=== PATIENT | female | born 1980 | race Caucasian/White ===

== ENCOUNTER → 2018-01-16 | Outpatient (CLI) | payer SELFPAY ==
[~2018-01-16] MED LIST: ATEN25 PO; K-Dur 20 meq T20 MEQ PO; LEVSOD125 PO; LIVALO4 MG PO; MULVITMINE PO; PROP10 PO; RXPROM25 PO
== END | disposition home or self-care (01) ==
LOC: LAB 14:15
PROVIDERS: Nurse Practitioner Family
DX: Z01.411 Encounter for gynecological examination (general) (routine) with abnormal findings (principal)
CPT/HCPCS: G0145

== ENCOUNTER → 2019-02-01 | Outpatient (CLI) | payer OTHER ==
[2019-02-01 10:01] LABS: BASOPHILS ABSOLUTE AUTO 0.03 K/mm3 (0.00-0.23); BASOPHILS PERCENT AUTO 0 % (0-2); EOSINOPHILS ABSOLUTE AUTO 0.14 K/mm3 (0.00-0.68); EOSINOPHILS PERCENT AUTO 2 % (0-6); Hematocrit 43.5 % (33.0-51.0); Hemoglobin 15.2 g/dL (11.5-16.0); IMMATURE GRAN ABSOLUTE AUTO 0.04 K/mm3 (0.00-0.10); IMMATURE GRAN PERCENT AUTO 0 % (0-1); LYMPHOCYTES ABSOLUTE AUTO 1.59 K/mm3 (0.84-5.20); LYMPHOCYTES PERCENT AUTO 17 % (21-46); MONOCYTES ABSOLUTE AUTO 0.47 K/mm3 (0.16-1.47); MONOCYTES PERCENT AUTO 5 % (4-13); Mean Corpuscular HGB 31.9 pg (26.0-34.0); Mean Corpuscular HGB Conc 34.9 g/dL (31.5-36.5); Mean Corpuscular Volume 91 fL (80-100); Mean Platelet Volume 8.2 fL (9.1-12.4); NEUTROPHILS ABSOLUTE AUTO 7.02 K/mm3 (1.96-9.15); NEUTROPHILS PERCENT AUTO 76 % (41-73); Platelet Count 237 K/mm3 (150-400); RDW Coefficient Variation 11.6 % (11.7-14.2); RDW Standard Deviation 38.7 fL (35.1-46.3); Red Blood Cell Count 4.76 M/mm3 (3.80-5.20); White Blood Cell Count 9.29 K/mm3 (4.00-11.30)
[2019-02-01 10:12] LABS: Alanine Aminotransfer (ALT/SGP 60 U/L (12-78); Albumin, Blood 4.1 g/dL (3.4-5.0); Albumin/Globulin Ratio 0.9 (0.8-1.8); Alk Phos 93 U/L (40-126); Anion Gap 9 mmol/L (6-16); Aspartate Aminotrans (AST/SGOT 55 U/L (12-37); Bilirubin, Total 1.4 mg/dL (0.1-1.0); Blood Urea Nitrogen 7 mg/dL (8-24); Bun/Creatinine Ratio 9.7 (12.0-20.0); CO2, Blood 30 mmol/L (21-32); Chloride, Blood 97 mmol/L (98-108); Creatinine, Blood 0.72 mg/dL (0.40-1.00); Globulin, Blood 4.5 g/dL (2.2-4.0); Glomerular Filtration Rate >60 (60-); Glucose, Blood 104 mg/dL (70-99); Potassium, Blood 3.5 mmol/L (3.5-5.5); Sodium, Blood 136 mmol/L (136-145); Total Protein, Blood 8.6 g/dL (6.4-8.2)
[2019-02-01 13:58] LABS: Bilirubin, Direct 0.2 mg/dL (0.0-0.3)
== END ==
LOC: LAB SHORT 09:57 → LAB EV 09:57
PROVIDERS: Physician Assistant
DX: R10.11 Right upper quadrant pain (principal); E80.6 Other disorders of bilirubin metabolism
CPT/HCPCS: 80053; 82248; 83690; 85025

== ENCOUNTER → 2020-01-19 | Outpatient (CLI) | payer OTHER | END | disposition home or self-care (01) | LOC: OLS 15:34 → LAB SHORT 15:34 | PROVIDERS: Nurse Practitioner | DX: Z01.419 Encounter for gynecological examination (general) (routine) without abnormal findings (principal) | CPT/HCPCS: G0145 ==

== ENCOUNTER 2021-10-23 05:22 | Emergency (ER) | payer OTHER ==
[~2021-10-23] VITALS: Ht 170.2 cm; Wt 83.9 kg
[2021-10-23] MEDS ORDERED: SYNTHROID137 MCG PO (05:41)
[2021-10-23] MEDS ORDERED: PRED20 PO (06:45)
== END 2021-10-23 06:50 | disposition home or self-care (01) ==
LOC: ER 05:22
DX: L50.0 Allergic urticaria (principal); Z88.0 Allergy status to penicillin; Z88.1 Allergy status to other antibiotic agents; Z88.5 Allergy status to narcotic agent; Z88.6 Allergy status to analgesic agent; Z88.8 Allergy status to other drugs, medicaments and biological substances; I10 Essential (primary) hypertension; E03.9 Hypothyroidism, unspecified; E78.5 Hyperlipidemia, unspecified; Z79.899 Other long term (current) drug therapy
CPT/HCPCS: 99282; J7512

== ENCOUNTER 2021-11-29 15:12 | Inpatient (IN) | payer OTHER ==
[~2021-11-29] VITALS: Ht 170.2 cm; Wt 84.4 kg
[~2021-11-29 15:12] MED LIST changes: -ATEN50 PO; -B-1100 M1 PO; -FOLI1 PO; -OMEP20ER PO; -OXYC5 PO; -POTCHL20ER PO
[2021-11-29 19:33] LABS: Cholesterol 192 mg/dL (50-200); Triglycerides 775 mg/dL (30-140)
[2021-11-30 05:46] LABS: BASOPHILS ABSOLUTE AUTO 0.04 K/mm3 (0.00-0.23); BASOPHILS PERCENT AUTO 0 % (0-2); EOSINOPHILS ABSOLUTE AUTO 0.02 K/mm3 (0.00-0.68); EOSINOPHILS PERCENT AUTO 0 % (0-6); Hematocrit 38.4 % (33.0-51.0); Hemoglobin 13.2 g/dL (11.5-16.0); IMMATURE GRAN ABSOLUTE AUTO 0.09 K/mm3 (0.00-0.10); IMMATURE GRAN PERCENT AUTO 1 % (0-1); LYMPHOCYTES ABSOLUTE AUTO 0.74 K/mm3 (0.84-5.20); LYMPHOCYTES PERCENT AUTO 4 % (21-46); MONOCYTES ABSOLUTE AUTO 0.56 K/mm3 (0.16-1.47); MONOCYTES PERCENT AUTO 3 % (4-13); Mean Corpuscular HGB 31.2 pg (26.0-34.0); Mean Corpuscular HGB Conc 34.4 g/dL (31.5-36.5); Mean Corpuscular Volume 91 fL (80-100); Mean Platelet Volume 8.5 fL (9.1-12.4); NEUTROPHILS ABSOLUTE AUTO 16.28 K/mm3 (1.96-9.15); NEUTROPHILS PERCENT AUTO 92 % (41-73); Platelet Count 172 K/mm3 (150-400); RDW Coefficient Variation 12.1 % (11.7-14.2); RDW Standard Deviation 40.2 fL (35.1-46.3); Red Blood Cell Count 4.23 M/mm3 (3.80-5.20); White Blood Cell Count 17.73 K/mm3 (4.00-11.30)
[2021-11-30 06:00] LABS: Anion Gap 9 mmol/L (6-16); Blood Urea Nitrogen 7 mg/dL (8-24); Bun/Creatinine Ratio 12.9 (12.0-20.0); CO2, Blood 25 mmol/L (21-32); Chloride, Blood 108 mmol/L (98-108); Creatinine, Blood 0.54 mg/dL (0.40-1.00); Glomerular Filtration Rate >60 (60-); Glucose, Blood 138 mg/dL (70-99); Magnesium, Blood 1.2 mg/dL (1.6-2.4); Potassium, Blood 2.7 mmol/L (3.5-5.5); Sodium, Blood 142 mmol/L (136-145)
--- NOTE | 2021-11-30 13:47 | NUR ---
SHIFT NOTE PT A&Ox4; ANXIOUS BUT COOPERTAIVE WTIH MOST CARE. PT REFUSING TELE. HR PER SPO2 LOW 100'S, NOTIFIFED DR ZUNIGA, NEW ORDERS TO D/C TELE. PT REPORTS INCREASED PAIN BETWEEN PAIN MEDICATIONS, NOTIFIED DR ZUNIGA, ORDER FOR TORADOL, PT REPORTS ADDITIONAL RELEIFE. PT REPORTS NAUSEA AND EMESIS WHEN WITH INCREASED PAIN, EMESIS LIQUIDS GREEN; DENIES NAUSEA WITH LOWER PAIN LEVELS. SPO2 >90% ON RA; LS CLEAR. PT DIET FOR CLEAR LIQUID. ELEVATED BP NOTED, TRENDING DOWN THIS AFTERNOON. OTHER VSS. NO OTHER ACUTE CHANGES. REPORTS CALLED TO FLOOR RN. PT TO MEDICAL FLOOR.
--- NOTE | 2021-11-30 14:52 | NUR ---
PT REPORT RECIEVED RECIEVED PT REPORT VIA MILLER ANAYA RN @ APPROX. 1250. PT TRANSFERED TO UNIT APPROX 133O VIA WC. PT ABLE TO SELF TRANSFER TO BED. PT ORIENTATED TO ROOM AND CALL LIGHT W/IN REACH. FOCUSED ASSESSMENT COMPLETED ON ARRIVAL. BP ELEVATED, PT REFUSED ORDERED BP MEDICATION. PT MEDICATED FOR PAIN PER EMAR. MALE VISITOR PRESENT @ BEDSIDE.
--- NOTE | 2021-11-30 16:25 | NUR ---
Initial Interview with [facility] Community Svp Chief Marketing Officer 1. Who did you speak with? Spoke with patient 2. What is the patient's prior level of functions? Patient lives independently with her boyfriend and two children. Patient able to perform ADL's without assistance. Patient lives in a single story home with no stairs; with running water, heat, electricity, and sewage. 3. What is the patient's current living situation? Patient lives independently 4. Is the patient and/or family able to provide transportation to and from doctor's appointments and pickle maker prescriptions? Yes, patient still drives 5. Does patient still drive? Yes 6. POA/PCP/NOK: NOK: Mother Juliana/PCP: Dr. Aundrea Willoughby 7. Discharge goals: Home -No DME needed -Medication Management: self -[facility]erred [facility] -Housekeeping need: patient able to perform -Cooking: patient able to perform 8. List barriers to discharge: None known at this time 9. Discharge Plan: Home/TBD 10. PCP Follow up appointment: Will be scheduled within seven calendar days of discharge 11. Other Notes: patient is not a
[2021-11-30] MEDS ORDERED: ATEN50 PO (17:07)
--- NOTE | 2021-11-30 17:31 | NUR ---
SHIFT SUMMARY PT A&O X4 & IN PLEASENT MOOD SINCE ARRIVAL TO UNIT, ABLE TO SELF TRANSFER SAFELY FROM WC @ ARRIVAL. MALE VISITOR @ BEDSIDE. PT VERBALIZED HOME MEDS ARE IN HER PURSE, PT ADVISED NOT TO TAKE HOME MEDS WHILE ADMITTED IN HOSPITAL. PT C/O PAIN, MEDICATED PER EMAR- RESTING COMFORTABLY SINCE IN BED. PT TOLERATING PO INTAKE, PT DENIES N/V. BP ELEVATED UPON ARRIVAL, PT STATES THIS IS BASELINE. CALL LIGHT W/IN REACH.
[2021-12-01 05:56] LABS: BASOPHILS ABSOLUTE AUTO 0.05 K/mm3 (0.00-0.23); BASOPHILS PERCENT AUTO 0 % (0-2); EOSINOPHILS ABSOLUTE AUTO 0.23 K/mm3 (0.00-0.68); EOSINOPHILS PERCENT AUTO 2 % (0-6); Hematocrit 35.3 % (33.0-51.0); Hemoglobin 11.8 g/dL (11.5-16.0); IMMATURE GRAN ABSOLUTE AUTO 0.16 K/mm3 (0.00-0.10); IMMATURE GRAN PERCENT AUTO 1 % (0-1); LYMPHOCYTES PERCENT AUTO 9 % (21-46); MONOCYTES ABSOLUTE AUTO 0.53 K/mm3 (0.16-1.47); MONOCYTES PERCENT AUTO 3 % (4-13); Mean Corpuscular HGB 31.4 pg (26.0-34.0); Mean Corpuscular HGB Conc 33.4 g/dL (31.5-36.5); Mean Corpuscular Volume 94 fL (80-100); Mean Platelet Volume 9.3 fL (9.1-12.4); NEUTROPHILS ABSOLUTE AUTO 13.24 K/mm3 (1.96-9.15); NEUTROPHILS PERCENT AUTO 85 % (41-73); Platelet Count 186 K/mm3 (150-400); RDW Coefficient Variation 12.5 % (11.7-14.2); RDW Standard Deviation 43.4 fL (35.1-46.3); Red Blood Cell Count 3.76 M/mm3 (3.80-5.20); White Blood Cell Count 15.61 K/mm3 (4.00-11.30)
[2021-12-01 06:18] LABS: Alanine Aminotransfer (ALT/SGP 19 U/L (12-78); Albumin, Blood 2.6 g/dL (3.4-5.0); Albumin/Globulin Ratio 0.7 (0.8-1.8); Alk Phos 79 U/L (50-136); Amylase, Blood 30 U/L (25-115); Anion Gap 5 mmol/L (6-16); Aspartate Aminotrans (AST/SGOT 29 U/L (12-37); Bilirubin, Total 1.7 mg/dL (0.1-1.0); Blood Urea Nitrogen 5 mg/dL (8-24); Bun/Creatinine Ratio 8.5 (12.0-20.0); CO2, Blood 31 mmol/L (21-32); Calcium, Blood 8.1 mg/dL (8.5-10.1); Chloride, Blood 99 mmol/L (98-108); Creatinine, Blood 0.59 mg/dL (0.40-1.00); Globulin, Blood 3.7 g/dL (2.2-4.0); Glomerular Filtration Rate >60 (60-); Glucose, Blood 99 mg/dL (70-99); Magnesium, Blood 2.4 mg/dL (1.6-2.4); Phosphorus, Blood 1.6 mg/dL (2.5-4.9); Potassium, Blood 2.7 mmol/L (3.5-5.5); Sodium, Blood 135 mmol/L (136-145); Total Protein, Blood 6.3 g/dL (6.4-8.2)
[2021-12-01 06:23] LABS: C-REACTIVE PROTEIN, EXT RANGE >19.000 mg/dL (0.000-0.300)
--- NOTE | 2021-12-01 06:41 | NUR ---
SHIFT SUMMARY PT IS AA0X4, VERY PLEASANT AND COOPERATIVE WITH CARE. PT IS INDEPENDENT .VSS REVIEWED. PT WAS MEDICATED FOR PAIN NEEDED.PT IS RESTING COMFORTABLY AT THIS TIME. BED IN LOWER POSITION AND CALL LIGHT IN EASY REACH.WILL CONTINUE TO MONITOR.
--- NOTE | 2021-12-01 17:57 | NUR ---
SHIFT SUMMARY PT A&O X4 AND IN PLEASENT MOOD T/O SHIFT. APPEARS ANXIOUS @ TIMES. MALE VISITOR @ BEDSIDE DURING VISITING HOURS. TOLERATING CL DIET, DENIES N/V. PAIN MEDS/INTERVENTIONS FOR PAIN T/O SHIFT. IV&PO K+ ADDMINISTERED FOR HYPOKALEMIA PER DR. PRYOR. VSS. CALL LIGHT W/IN REACH. INDEPENDENT IN ROOM.
--- NOTE | 2021-12-02 03:42 | NUR ---
PT NOTED WITH ELEVATED BP 157/111. PT STATES THAT HER BLOOD PRESSURE IS NOT HIGH. STATES THAT SHE CAN TELL WHEN HER BP IS HIGH BECAUSE HER "HANDS SWELL." PT REMINDED THAT THIS IS NOT THE FIRST TIME THAT SHE HAS BEEN NOTED TO HAVE SUCH A HIGH BLOOD PRESSURE READING, EVEN YESTERDAY AROUND 1525 PT HAD A SIMILIAR BP WELL PERIODICALLY IN THE PAST FEW DAYS. PT EDUCATED ABOUT THE POSSIBILTY OF BEING ASYMPTOMATIC AND EDUCATED ABOUT THE RISKS OF ALLOWING ELEVATED BP'S TO GO UNADDRESSED. ALSO, PT EDUCATED THAT THE BP ELEVATION CAN BE RELATED TO PAIN (PT WAS JUST MEDICATED WITH PRN IBUPROFEN 800MG FOR C/O BACK PAIN), THE IV FLUIDS (HAS LR AT 100ML/HR), ANXIETY, ALCOHOL WITHDRAWAL. PT BECAME FRUSTRATED WHEN ASKED IF WE COULD RECHECK HER BP IN 30 MINUTES-1 HOUR. PT REFUSED BP RECHECK STATING THAT SHE "IS FINE."
[2021-12-02 06:25] LABS: BASOPHILS ABSOLUTE AUTO 0.03 K/mm3 (0.00-0.23); BASOPHILS PERCENT AUTO 0 % (0-2); EOSINOPHILS ABSOLUTE AUTO 0.15 K/mm3 (0.00-0.68); EOSINOPHILS PERCENT AUTO 1 % (0-6); Hematocrit 33.5 % (33.0-51.0); Hemoglobin 10.9 g/dL (11.5-16.0); IMMATURE GRAN ABSOLUTE AUTO 0.11 K/mm3 (0.00-0.10); IMMATURE GRAN PERCENT AUTO 1 % (0-1); LYMPHOCYTES ABSOLUTE AUTO 1.13 K/mm3 (0.84-5.20); LYMPHOCYTES PERCENT AUTO 10 % (21-46); MONOCYTES ABSOLUTE AUTO 0.59 K/mm3 (0.16-1.47); MONOCYTES PERCENT AUTO 5 % (4-13); Mean Corpuscular HGB 31.1 pg (26.0-34.0); Mean Corpuscular HGB Conc 32.5 g/dL (31.5-36.5); Mean Corpuscular Volume 95 fL (80-100); Mean Platelet Volume 8.9 fL (9.1-12.4); NEUTROPHILS ABSOLUTE AUTO 9.38 K/mm3 (1.96-9.15); NEUTROPHILS PERCENT AUTO 82 % (41-73); Platelet Count 206 K/mm3 (150-400); RDW Coefficient Variation 12.5 % (11.7-14.2); RDW Standard Deviation 43.7 fL (35.1-46.3); Red Blood Cell Count 3.51 M/mm3 (3.80-5.20); White Blood Cell Count 11.39 K/mm3 (4.00-11.30)
[2021-12-02 06:57] LABS: Alanine Aminotransfer (ALT/SGP 22 U/L (12-78); Albumin, Blood 2.1 g/dL (3.4-5.0); Albumin/Globulin Ratio 0.5 (0.8-1.8); Alk Phos 82 U/L (50-136); Anion Gap 9 mmol/L (6-16); Aspartate Aminotrans (AST/SGOT 25 U/L (12-37); Bilirubin, Total 1.2 mg/dL (0.1-1.0); Blood Urea Nitrogen 6 mg/dL (8-24); Bun/Creatinine Ratio 11.3 (12.0-20.0); CO2, Blood 29 mmol/L (21-32); Calcium, Blood 8.5 mg/dL (8.5-10.1); Chloride, Blood 101 mmol/L (98-108); Creatinine, Blood 0.53 mg/dL (0.40-1.00); Globulin, Blood 4.3 g/dL (2.2-4.0); Glomerular Filtration Rate >60 (60-); Glucose, Blood 91 mg/dL (70-99); Magnesium, Blood 2.1 mg/dL (1.6-2.4); Phosphorus, Blood 2.6 mg/dL (2.5-4.9); Potassium, Blood 2.7 mmol/L (3.5-5.5); Sodium, Blood 139 mmol/L (136-145); Total Protein, Blood 6.4 g/dL (6.4-8.2)
--- NOTE | 2021-12-02 07:25 | NUR ---
DENISE SUMMARY ASSUMED CARE AT 1900. PT MEDICATED OF RC/O ABDOMINAL AND BACK PAIN PRN, WITH MODERATE/GOOD EFFECTIVENESS. PT WITH EPISODE OF ELEVATED BP, REFUSED RECHECK. RUE POWERGLIDE WITH IV FLUIDS INFUSING ORDERED, DRESSING INTACT. PT TOOK A SHOWER LAST NIGHT AT ABOUT 11PM. PT STATES LAST BM WAS ON 11/29/2021. BED IS IN LOW POSITION WITH THE CALL LIGHT WITHIN REACH.
--- NOTE | 2021-12-02 09:14 | NUR ---
KCL LEVEL 2.7, NOTIFIED DR. DICKERSON. ORDER RECEIVED FOR KCL 40 MEQ PO NOW AND KCL 40 MEQ IV NOW. ORDER PROCESSED. PT ALSO REQUESTED TO SPEAK TO LADLE CLEANER TODAY. NOTIFIED BRET AGARWAL OF REQUEST, LEFT MESSAGE.
[2021-12-02] MEDS ORDERED: OXYC5 PO (13:46)
[2021-12-02] MEDS ORDERED: OMEP20ER PO (13:46)
[2021-12-02] MEDS ORDERED: FOLI1 PO (13:46)
[2021-12-02] MEDS ORDERED: POTCHL20ER PO (13:47)
[2021-12-02] MEDS ORDERED: B-1100 M1 PO (13:47)
--- NOTE | 2021-12-02 14:33 | NUR ---
DISCHARGE SUMMARY: PT A/O X 4 IND AT TIME OF DISCHARGE. POTASSIUM LEVEL 3.4. EDUCATED PT ON DISCHARGE INSTRUCTIONS AND MEDICATIONS. IV REMOVED BY ADMINISTRATIVE SUPPORT SPECIALISTRAMBO Castillo. PT PACKED UP BELONGINGS. PT AMBULATED TO POV ESCORTED BY GLORIA SIBLEY.
--- NOTE | 2021-12-02 15:55 | NUR ---
Per Dr. Arzate discharge appropriate on: 12/02/21. Patient does not oppose discharge. Patient discharged to residence. Family provided transportation to residence. DME: none needed; patient able to perform ADL's independently without assistance. [facility] Transition of Care will contact patient to schedule hospital follow up with PCP Dr. Aundrea Willoughby. Patient has a good support system. No barriers to discharge.
== END 2021-12-02 13:57 | disposition home or self-care (01) | DRG 439 ==
LOC: ER 15:12 → ERHOLD 15:13 → MEDS 11-30 14:07
PROVIDERS: Hospitalist; ADMIT Internal Medicine
DX: K85.20 Alcohol induced acute pancreatitis without necrosis or infection (principal); R65.10 Systemic inflammatory response syndrome (SIRS) of non-infectious origin without acute organ dysfunction; I10 Essential (primary) hypertension; E03.9 Hypothyroidism, unspecified; E78.00 Pure hypercholesterolemia, unspecified; F41.9 Anxiety disorder, unspecified; E87.6 Hypokalemia; K76.0 Fatty (change of) liver, not elsewhere classified; E78.1 Pure hyperglyceridemia; E83.42 Hypomagnesemia; F10.20 Alcohol dependence, uncomplicated; K70.9 Alcoholic liver disease, unspecified; E78.5 Hyperlipidemia, unspecified; Z88.0 Allergy status to penicillin; Z88.1 Allergy status to other antibiotic agents; Z88.5 Allergy status to narcotic agent; Z88.8 Allergy status to other drugs, medicaments and biological substances; Z98.890 Other specified postprocedural states; Z79.899 Other long term (current) drug therapy
CPT/HCPCS: 36415; 76705; 80048; 80053; 82150; 82465; 83690; 83735; 84100; 84132; 84478; 85025; 85651; 86140; 96365; 96375; 96376; 99285-25; A9270; G0378; J0780; J1170; J1650; J1885; J2405; J2765; J3411; J3475; J3480; J7030; J7042; J7060; J7120

== ENCOUNTER → 2021-11-29 | Outpatient (CLI) | payer OTHER ==
[~2021-11-29] MED LIST changes: -ATEN25 PO; +ATEN50 PO; +B-1100 M1 PO; +CHLO25B PO; +FOLI1 PO; +OMEP20ER PO; +OXYC5 PO; +POTCHL20ER PO; +PRED20 PO; +SYNTHROID137 MCG PO
[2021-11-29 12:31] LABS: BASOPHILS ABSOLUTE AUTO 0.06 K/mm3 (0.00-0.23); BASOPHILS PERCENT AUTO 0 % (0-2); Hematocrit 43.4 % (33.0-51.0); Hemoglobin 15.1 g/dL (11.5-16.0); LYMPHOCYTES PERCENT AUTO 3 % (21-46); MONOCYTES PERCENT AUTO 3 % (4-13); Mean Corpuscular HGB 31.8 pg (26.0-34.0); Mean Corpuscular HGB Conc 34.8 g/dL (31.5-36.5); Mean Corpuscular Volume 91 fL (80-100); Mean Platelet Volume 8.2 fL (9.1-12.4); Platelet Count 220 K/mm3 (150-400); RDW Coefficient Variation 12.2 % (11.7-14.2); RDW Standard Deviation 40.3 fL (35.1-46.3); Red Blood Cell Count 4.75 M/mm3 (3.80-5.20); White Blood Cell Count 18.14 K/mm3 (4.00-11.30)
[2021-11-29 12:37] LABS: EOSINOPHILS PERCENT AUTO 0 % (0-6); NEUTROPHILS PERCENT AUTO 93 % (41-73)
[2021-11-29 12:42] LABS: Alanine Aminotransfer (ALT/SGP 38 U/L (12-78); Albumin, Blood 3.7 g/dL (3.4-5.0); Alk Phos 98 U/L (40-126); Anion Gap 15 mmol/L (6-16); Aspartate Aminotrans (AST/SGOT 55 U/L (12-37); Bilirubin, Total 1.2 mg/dL (0.1-1.0); Blood Urea Nitrogen 8 mg/dL (8-24); Bun/Creatinine Ratio 11.1 (12.0-20.0); CO2, Blood 24 mmol/L (21-32); Calcium, Blood 9.1 mg/dL (8.5-10.1); Chloride, Blood 103 mmol/L (98-108); Creatinine, Blood 0.72 mg/dL (0.40-1.00); Globulin, Blood 3.8 g/dL (2.2-4.0); Glomerular Filtration Rate >60 (60-); Glucose, Blood 153 mg/dL (70-99); Potassium, Blood 3.1 mmol/L (3.5-5.5); Sodium, Blood 142 mmol/L (136-145); Total Protein, Blood 7.5 g/dL (6.4-8.2)
[2021-11-29 12:43] LABS: EOSINOPHILS ABSOLUTE AUTO 0.03 K/mm3 (0.00-0.68); IMMATURE GRAN ABSOLUTE AUTO 0.07 K/mm3 (0.00-0.10); IMMATURE GRAN PERCENT AUTO 0 % (0-1); LYMPHOCYTES ABSOLUTE AUTO 0.53 K/mm3 (0.84-5.20); MONOCYTES ABSOLUTE AUTO 0.52 K/mm3 (0.16-1.47); NEUTROPHILS ABSOLUTE AUTO 16.62 K/mm3 (1.96-9.15)
== END | disposition home or self-care (01) ==
LOC: LAB SHORT 12:25
PROVIDERS: Physician Assistant Medical
DX: R10.13 Epigastric pain (principal); R11.2 Nausea with vomiting, unspecified
CPT/HCPCS: 80053; 83690; 85025

== ENCOUNTER → 2022-02-03 | Outpatient (CLI) | payer OTHER ==
[~2022-02-03] MED LIST changes: +ATEN50 PO; +B-1100 M1 PO; +FOLI1 PO; +OMEP20ER PO; +OXYC5 PO; +POTCHL20ER PO
[2022-02-03 09:49] LABS: BASOPHILS ABSOLUTE AUTO 0.03 K/mm3 (0.00-0.23); BASOPHILS PERCENT AUTO 0 % (0-2); EOSINOPHILS ABSOLUTE AUTO 0.06 K/mm3 (0.00-0.68); EOSINOPHILS PERCENT AUTO 1 % (0-6); Hematocrit 42.1 % (33.0-51.0); Hemoglobin 14.2 g/dL (11.5-16.0); IMMATURE GRAN ABSOLUTE AUTO 0.05 K/mm3 (0.00-0.10); IMMATURE GRAN PERCENT AUTO 0 % (0-1); LYMPHOCYTES ABSOLUTE AUTO 0.87 K/mm3 (0.84-5.20); LYMPHOCYTES PERCENT AUTO 7 % (21-46); MONOCYTES ABSOLUTE AUTO 0.45 K/mm3 (0.16-1.47); MONOCYTES PERCENT AUTO 4 % (4-13); Mean Corpuscular HGB Conc 33.7 g/dL (31.5-36.5); Mean Corpuscular Volume 92 fL (80-100); Mean Platelet Volume 8.6 fL (9.1-12.4); NEUTROPHILS ABSOLUTE AUTO 10.85 K/mm3 (1.96-9.15); NEUTROPHILS PERCENT AUTO 88 % (41-73); Platelet Count 266 K/mm3 (150-400); RDW Coefficient Variation 12.1 % (11.7-14.2); RDW Standard Deviation 40.6 fL (35.1-46.3); Red Blood Cell Count 4.58 M/mm3 (3.80-5.20); White Blood Cell Count 12.31 K/mm3 (4.00-11.30)
[2022-02-03 10:02] LABS: Alanine Aminotransfer (ALT/SGP 37 U/L (12-78); Albumin, Blood 3.7 g/dL (3.4-5.0); Albumin/Globulin Ratio 0.9 (0.8-1.8); Alk Phos 111 U/L (40-126); Anion Gap 10 mmol/L (6-16); Aspartate Aminotrans (AST/SGOT 47 U/L (12-37); Bilirubin, Total 1.6 mg/dL (0.1-1.0); Blood Urea Nitrogen 10 mg/dL (8-24); Bun/Creatinine Ratio 13.7 (12.0-20.0); CO2, Blood 27 mmol/L (21-32); Calcium, Blood 8.8 mg/dL (8.5-10.1); Chloride, Blood 100 mmol/L (98-108); Creatinine, Blood 0.73 mg/dL (0.40-1.00); Glomerular Filtration Rate >60 (60-); Glucose, Blood 129 mg/dL (70-99); Potassium, Blood 3.9 mmol/L (3.5-5.5); Sodium, Blood 137 mmol/L (136-145); Total Protein, Blood 7.7 g/dL (6.4-8.2)
== END ==
LOC: LAB SHORT 09:36
PROVIDERS: Physician Assistant Surgical
DX: R10.12 Left upper quadrant pain (principal)
CPT/HCPCS: 80053; 83690; 85025

== ENCOUNTER 2023-01-16 08:25 | Inpatient (IN) | payer OTHER ==
[~2023-01-16] VITALS: Ht 170.2 cm; Wt 72.6 kg
[~2023-01-16 08:25] MED LIST changes: +ONDA4ODT MM; +OXAYDO5 M1 PO
[2023-01-16 08:57] LABS: BASOPHILS ABSOLUTE AUTO 0.02 K/mm3 (0.00-0.23); BASOPHILS PERCENT AUTO 0 % (0-2); EOSINOPHILS ABSOLUTE AUTO 0.13 K/mm3 (0.00-0.68); EOSINOPHILS PERCENT AUTO 2 % (0-6); Hemoglobin 14.6 g/dL (11.5-16.0); IMMATURE GRAN ABSOLUTE AUTO 0.02 K/mm3 (0.00-0.10); IMMATURE GRAN PERCENT AUTO 0 % (0-1); LYMPHOCYTES ABSOLUTE AUTO 1.08 K/mm3 (0.84-5.20); LYMPHOCYTES PERCENT AUTO 14 % (21-46); MONOCYTES ABSOLUTE AUTO 0.69 K/mm3 (0.16-1.47); MONOCYTES PERCENT AUTO 9 % (4-13); Mean Corpuscular HGB 31.7 pg (26.0-34.0); Mean Corpuscular Volume 94 fL (80-100); Mean Platelet Volume 9.2 fL (9.1-12.4); NEUTROPHILS ABSOLUTE AUTO 5.75 K/mm3 (1.96-9.15); NEUTROPHILS PERCENT AUTO 75 % (41-73); Platelet Count 168 K/mm3 (150-400); RDW Coefficient Variation 12.6 % (11.7-14.2); RDW Standard Deviation 43.7 fL (35.1-46.3); White Blood Cell Count 7.69 K/mm3 (4.00-11.30)
[2023-01-16 09:25] LABS: Albumin, Blood 4.5 g/dL (3.4-5.0); Bilirubin, Total 2.2 mg/dL (0.1-1.0); Bun/Creatinine Ratio 27.1 (12.0-20.0); Calcium, Blood 10.1 mg/dL (8.5-10.1); Creatinine, Blood 0.52 mg/dL (0.40-1.00); Globulin, Blood 4.3 g/dL (2.2-4.0); Potassium, Blood 3.8 mmol/L (3.5-5.5); Total Protein, Blood 8.8 g/dL (6.4-8.2)
[2023-01-16 10:22] LABS: Source, Urine Clean Catch
[2023-01-16 10:26] LABS: Appearance, Urine Clear (Clear); Bilirubin, Urine Neg (Neg); Blood, Urine Neg (Neg); Color, Urine Yellow (P-Yellow); Glucose Qualitative, Urine Neg (Neg); Ketones, Urine 3+ (Neg); Leukocyte Esterase, Urine Neg (Neg); Nitrite, Urine Neg (Neg); Protein, Urine 1+ (Neg); Urobilinogen, Urine 1+ (Normal); pH, Urine 6.5 (5.0-8.0)
--- NOTE | 2023-01-16 14:17 | NUR ---
ADMISSION: PT ARRIVED VIA , ESCORTED BY DIRECTOR OF CLINICAL EDUCATION. PT ABLE TO TRANSFER OUT OF IN THE BED UNASSISTED. PT ABLE TO AMBULATE IN THE ROOM UNASSISTED AND WITH A STEADY GAIT. PT HAS MODERATE RUQ PAIN, THROBBING, ACHING AND RADIATING TO LUQ. DR. JOHNSON PLACED AN ORDER FOR REWIND OPERATOR PUMP FOR MORPHINE LOADING DOSE 3MG, REWIND OPERATOR DOSE 0.2MG, LOCKOUT 10MIN WITH 4 HOUR LIMIT SET 20MG. PT HAD MODERATE NAUSEA AND VOMITING DURING THE MOPHINE 3MG LOADING DOSE, PT GIVEN ZOFRAN IV 4MG. ON ASSESSMENT PT PAIN IMPROVED AND NAUSEA AND VOMITING STOPPED. PT ABLE TO REST IN BED WITH NO S/S OF DISTRESS. PT GIVEN CLEAR FLUIDS GATORADE, WATER AND APPLE JUICE. PT AT BEDSIDE FOR SUPPORT AND CARE. PT ABLE TO PROVIDE MOST OF ADL'S INDEPEDANTLY PT IN BED WITH CALL LIGHT AND REWIND OPERATOR PUMP CONTROLS WITHIN REACH.
--- NOTE | 2023-01-17 04:29 | NUR ---
ATHLETIC EQUIPMENT CUSTODIAN SUMMARY PT A/OX4. NO ACTUE EVENTS. PT ON CLEAR LIQUIDS AND TOLERATING W/SOME DISCOMFORT. BEATER ROOM SUPERVISOR; 0.20MG MORPHINE Q10 MINUTES FOR MAX 20MG Q4 HOURS. PT EPISODE OF N&V THIS. PT NOT WANTING TO RELY ON BEATER ROOM SUPERVISOR IN HOPES TO GO HOME SOONER. PT EDUCATION ON CURRENT ILLNESS AND ENCOURAGED PAIN CONTROL T/HELP W/NAUSEA. MEDS P/EMAR. OF THIS NOTE TOTAL BEATER ROOM SUPERVISOR DOSE AT 0.6MG MORPHINE. PT ABLE TO MAKE NEEDS KNOWN. CALL LIGHT ACCESSIBE. WILL CONT T/MONITOR.
[2023-01-17 04:58] LABS: BASOPHILS ABSOLUTE AUTO 0.02 K/mm3 (0.00-0.23); BASOPHILS PERCENT AUTO 0 % (0-2); EOSINOPHILS ABSOLUTE AUTO 0.18 K/mm3 (0.00-0.68); EOSINOPHILS PERCENT AUTO 3 % (0-6); Hematocrit 35.7 % (33.0-51.0); IMMATURE GRAN ABSOLUTE AUTO 0.03 K/mm3 (0.00-0.10); IMMATURE GRAN PERCENT AUTO 1 % (0-1); LYMPHOCYTES ABSOLUTE AUTO 0.76 K/mm3 (0.84-5.20); LYMPHOCYTES PERCENT AUTO 12 % (21-46); MONOCYTES ABSOLUTE AUTO 0.62 K/mm3 (0.16-1.47); MONOCYTES PERCENT AUTO 9 % (4-13); Mean Corpuscular HGB 31.9 pg (26.0-34.0); Mean Corpuscular HGB Conc 33.6 g/dL (31.5-36.5); Mean Corpuscular Volume 95 fL (80-100); Mean Platelet Volume 9.4 fL (9.1-12.4); NEUTROPHILS ABSOLUTE AUTO 4.96 K/mm3 (1.96-9.15); NEUTROPHILS PERCENT AUTO 76 % (41-73); Platelet Count 152 K/mm3 (150-400); RDW Coefficient Variation 12.3 % (11.7-14.2); RDW Standard Deviation 43.2 fL (35.1-46.3); Red Blood Cell Count 3.76 M/mm3 (3.80-5.20); White Blood Cell Count 6.57 K/mm3 (4.00-11.30)
[2023-01-17 05:31] LABS: Albumin, Blood 3.5 g/dL (3.4-5.0); Bilirubin, Total 1.6 mg/dL (0.1-1.0); Calcium, Blood 8.4 mg/dL (8.5-10.1); Creatinine, Blood 0.42 mg/dL (0.40-1.00); Globulin, Blood 3.4 g/dL (2.2-4.0); Magnesium, Blood 1.7 mg/dL (1.6-2.4); Potassium, Blood 3.9 mmol/L (3.5-5.5); Total Protein, Blood 6.9 g/dL (6.4-8.2)
--- NOTE | 2023-01-17 16:01 | NUR ---
PT IS A/OX4, PLEASANT AND COOPERATIVE, UP IND IN HER ROOM. THE PT CONTINUES TO HAVE SEVERE ABD PAIN AND N/V. PT ENCOURAGED TO LITTLE PO INTAKE AT THIS TIME DUE TO THE PAIN. PER PT SHE HAS HAD ONLY SIPS AT A TIME OF CLEAR ENSURE AND SOME ICE CHIPS. PT IS ON A MORPHINE PLUNKET NURSE AND HAS ALSO TAKEN ORAL PAIN MEDICATION. PT WAS MEDICATED FOR NAUSEA X2 SO FAR THIS SHIFT. CALL LIGHT IN REACH. WILL CONTINUE TO MONITOR AND ASSESS FOR CHANGES
[2023-01-18 05:25] LABS: BASOPHILS ABSOLUTE AUTO 0.01 K/mm3 (0.00-0.23); BASOPHILS PERCENT AUTO 0 % (0-2); EOSINOPHILS ABSOLUTE AUTO 0.12 K/mm3 (0.00-0.68); EOSINOPHILS PERCENT AUTO 2 % (0-6); IMMATURE GRAN ABSOLUTE AUTO 0.02 K/mm3 (0.00-0.10); IMMATURE GRAN PERCENT AUTO 0 % (0-1); LYMPHOCYTES ABSOLUTE AUTO 0.68 K/mm3 (0.84-5.20); LYMPHOCYTES PERCENT AUTO 10 % (21-46); MONOCYTES ABSOLUTE AUTO 0.55 K/mm3 (0.16-1.47); MONOCYTES PERCENT AUTO 8 % (4-13); Mean Corpuscular HGB 31.7 pg (26.0-34.0); Mean Corpuscular HGB Conc 34.2 g/dL (31.5-36.5); Mean Corpuscular Volume 93 fL (80-100); Mean Platelet Volume 9.1 fL (9.1-12.4); NEUTROPHILS ABSOLUTE AUTO 5.64 K/mm3 (1.96-9.15); NEUTROPHILS PERCENT AUTO 80 % (41-73); Platelet Count 153 K/mm3 (150-400); RDW Coefficient Variation 12.1 % (11.7-14.2); RDW Standard Deviation 41.3 fL (35.1-46.3); White Blood Cell Count 7.02 K/mm3 (4.00-11.30)
[2023-01-18 05:55] LABS: Albumin, Blood 3.6 g/dL (3.4-5.0); Albumin/Globulin Ratio 0.9 (0.8-1.8); Bilirubin, Total 1.2 mg/dL (0.1-1.0); Bun/Creatinine Ratio 13.7 (12.0-20.0); Calcium, Blood 8.8 mg/dL (8.5-10.1); Creatinine, Blood 0.36 mg/dL (0.40-1.00); Globulin, Blood 3.8 g/dL (2.2-4.0); Phosphorus, Blood 2.9 mg/dL (2.5-4.9); Potassium, Blood 3.8 mmol/L (3.5-5.5); Total Protein, Blood 7.4 g/dL (6.4-8.2)
--- NOTE | 2023-01-18 06:44 | NUR ---
EVAPORATOR OPERATOR MOLASSES SUMMARY: A&Ox4. PLEASANT AND COOPERATIVE WITH CARE. CALLS APPROPRIATELY AND IS ABLE TO COMMUNICATE NEEDS EFFECTIVELY. MEDICATED PRN OXY 10MG x2 T/O NIGHT AND EXTRUSION TECHNICIAN FOR ABDOMINAL PAIN R/T PANCREATITIS. CIWA SCORES CONTINUE TO BE <8. SHE ALSO DECLINES ATIVAN SHE HAS HAD NIGHTMARES FROM IT IN THE PAST. ELEVATED BP BUT DECLINED HYDRALAZINE. LABS THIS AM; NO CRITICAL RESULTS RECEIVED AT THIS TIME. DR JOHNSON TO BEDSIDE THIS AM; PT CAN START FULL LIQUIDS; ANTICIPATE DC EXTRUSION TECHNICIAN PUMP AND CHANGING TO PRN DILAUDID. HE WILL PUT IN ORDERS. REPORT TO ONCOMING RN.
[2023-01-18] MEDS ORDERED: ONDA4 PO (10:27)
--- NOTE | 2023-01-18 14:14 | NUR ---
LATE ENTRY/DC HOME 1245: WRITTEN & VERBAL DC INSTRUCTIONS GIVEN TO PT WITH PRESENT, BOTH VERBALIZED GOOD UNDERSTANDING. ALL QUESTIONS & CONCERNS ANSWERED. PIV DC'D WITH CATH TIP INTACT, NO REDNESS OR SWELLING NOTED. 1 NEW SCRIPT FAXED TO [facility]. 1 OTHER NEW HARD COPY SCRIPT FOR PAIN MEDICATION COPIED WITH COPY ON CHART & ORIGINAL SCRIPT GIVEN TO PT. PT AMBULATED SELF, ACCOMPANIED BY , TO PRIVATE VEHICLE WITH ALL PERSONAL BELONGINGS.
== END 2023-01-18 12:30 | disposition home or self-care (01) | DRG 439 ==
LOC: ER 08:25 → MEDS 08:26
PROVIDERS: Emergency Medicine; ADMIT Family Medicine
DX: K85.20 Alcohol induced acute pancreatitis without necrosis or infection (principal); E87.1 Hypo-osmolality and hyponatremia; R16.0 Hepatomegaly, not elsewhere classified; K76.0 Fatty (change of) liver, not elsewhere classified; F10.10 Alcohol abuse, uncomplicated; N20.0 Calculus of kidney; R74.8 Abnormal levels of other serum enzymes; I10 Essential (primary) hypertension; E78.00 Pure hypercholesterolemia, unspecified; E03.9 Hypothyroidism, unspecified; F17.210 Nicotine dependence, cigarettes, uncomplicated; F41.9 Anxiety disorder, unspecified; Z98.890 Other specified postprocedural states; Z71.41 Alcohol abuse counseling and surveillance of alcoholic; Z88.0 Allergy status to penicillin; Z88.8 Allergy status to other drugs, medicaments and biological substances; Z88.5 Allergy status to narcotic agent; Z87.19 Personal history of other diseases of the digestive system; Z88.1 Allergy status to other antibiotic agents; Z79.899 Other long term (current) drug therapy
CPT/HCPCS: 36415; 74176; 76705; 80053; 81025; 83690; 83735; 84100; 85025; 96361; 96365; 96366; 96374; 96375; 96376; 99285-25; A9270; G0378; G0480; J2270; J2405; J3475; J7030

== ENCOUNTER → 2023-02-05 | Outpatient (CLI) | payer OTHER ==
[~2023-02-05] MED LIST changes: +ONDA4 PO
[2023-02-06 10:19] LABS: Candida species (DNA Probe) Negative (NEGATIVE); G. vaginalis (DNA Probe) Positive (NEGATIVE); T. vaginalis (DNA Probe) Negative (NEGATIVE)
[2023-02-07 15:11] LABS: HPV 16 Negative (Negative); HPV 18 Negative (Negative); HPV OTHER HR TYPES Negative (Negative)
[2023-02-08 14:11] LABS: CHLAMYDIA BY NAA Negative (Negative); GONOCOCCUS BY NAA Negative (Negative); TRICH VAG BY NAA Negative (Negative)
== END | disposition home or self-care (01) ==
LOC: RAD SHORT 16:00
PROVIDERS: Family Medicine
DX: Z01.419 Encounter for gynecological examination (general) (routine) without abnormal findings (principal)
CPT/HCPCS: 87480; 87491; 87510; 87591; 87624; 87660; 87661; 88175

== ENCOUNTER 2023-06-04 17:09 | Inpatient (IN) | payer OTHER ==
[~2023-06-04] VITALS: Ht 170.2 cm; Wt 72.6 kg
[~2023-06-04 17:09] MED LIST changes: +ATEN25 PO; -ATEN50 PO
[2023-06-04 18:15] LABS: BASOPHILS ABSOLUTE AUTO 0.03 K/mm3 (0.00-0.23); BASOPHILS PERCENT AUTO 0 % (0-2); EOSINOPHILS ABSOLUTE AUTO 0.06 K/mm3 (0.00-0.68); EOSINOPHILS PERCENT AUTO 1 % (0-6); Hematocrit 44.1 % (33.0-51.0); Hemoglobin 14.6 g/dL (11.5-16.0); IMMATURE GRAN ABSOLUTE AUTO 0.02 K/mm3 (0.00-0.10); IMMATURE GRAN PERCENT AUTO 0 % (0-1); LYMPHOCYTES ABSOLUTE AUTO 0.99 K/mm3 (0.84-5.20); LYMPHOCYTES PERCENT AUTO 10 % (21-46); MONOCYTES ABSOLUTE AUTO 0.39 K/mm3 (0.16-1.47); MONOCYTES PERCENT AUTO 4 % (4-13); Mean Corpuscular HGB 30.7 pg (26.0-34.0); Mean Corpuscular HGB Conc 33.1 g/dL (31.5-36.5); Mean Corpuscular Volume 93 fL (80-100); Mean Platelet Volume 8.5 fL (9.1-12.4); NEUTROPHILS ABSOLUTE AUTO 7.99 K/mm3 (1.96-9.15); NEUTROPHILS PERCENT AUTO 84 % (41-73); Platelet Count 190 K/mm3 (150-400); RDW Coefficient Variation 13.2 % (11.7-14.2); RDW Standard Deviation 44.9 fL (35.1-46.3); Red Blood Cell Count 4.75 M/mm3 (3.80-5.20); White Blood Cell Count 9.48 K/mm3 (4.00-11.30)
[2023-06-04 18:34] LABS: Albumin, Blood 3.9 g/dL (3.4-5.0); Albumin/Globulin Ratio 1.1 (0.8-1.8); Bilirubin, Total 1.2 mg/dL (0.1-1.0); Bun/Creatinine Ratio 13.8 (12.0-20.0); Calcium, Blood 8.9 mg/dL (8.5-10.1); Creatinine, Blood 0.58 mg/dL (0.40-1.00); Globulin, Blood 3.7 g/dL (2.2-4.0); Potassium, Blood 4.3 mmol/L (3.5-5.5); Total Protein, Blood 7.6 g/dL (6.4-8.2)
[2023-06-04 20:59] LABS: Source, Urine Clean Catch
[2023-06-04 21:06] LABS: Appearance, Urine Clear (Clear); Bilirubin, Urine Neg (Neg); Blood, Urine Neg (Neg); Color, Urine Amber (P-Yellow); Glucose Qualitative, Urine Neg (Neg); Ketones, Urine 4+ (Neg); Leukocyte Esterase, Urine 1+ (Neg); Nitrite, Urine Neg (Neg); Protein, Urine 2+ (Neg); Urobilinogen, Urine 1+ (Normal)
[2023-06-04 21:10] LABS: Magnesium, Blood 1.8 mg/dL (1.6-2.4)
[2023-06-04 21:18] LABS: Bacteria Many /hpf; Red Blood Cells, Urine 0-2 /hpf (0-2); Squamous Epithelial Cells Mod /hpf (Few)
[2023-06-05 03:26] VITALS: BP 160/100
--- NOTE | 2023-06-05 04:56 | NUR ---
SHIFT SUMMARY. PT ARRIVED ON UNIT AT ABOUT ~0330. ADMITTED FOR PANCREATITIS. PT IS AOX4, PLEASANT, COOPERATIVE WITH CARE. ORDERED FENTANYL 25 MCG WAS NOT ADEQUATELY MANAGING PAIN. CALLED HOSPITALIST DR. ARTEAGA WHO REPLACED WITH DILAUDID WHICH HAS BEEN MANAGING PAIN EFFECTIVELY. PT INDEPENDENT WITHIN ROOM. NPO. BECOMES NAUSEOUS WITH PAIN BUT THIS SUBSIDES WHEN PAIN IS MANAGED. NO ACUTE SIGNS OF ALCOHOL WITHDRAWAL. LR RUNNING @ 125 MLS/HR. SKIN ASSESSMENT LARGELY UNREMARKABLE. CALLS APPROPRIATELY. BED LOCKED IN LOWEST POSITION. CALL LIGHT LEFT WITHIN REACH.
[2023-06-05 08:06] VITALS: BP 149/98
[2023-06-05 15:35] VITALS: BP 149/94
--- NOTE | 2023-06-05 18:48 | NUR ---
SHIFT SUMMARY ALERT, ORIENTED, AND INDEPENDENT. INTERMITTENT NAUSEA AND VOMITING. TOLERATING SIPS OF WATER AND APPLESAUCE. MEDICATED FOR PAIN AND NAUSEA PER EMAR. SALINE LOCKED AT THIS TIME. VOIDING WELL. THERAPEUTIC DISCUSSION WITH PATIENT AND S/O ABOUT ALCOHOL CESSATION. MRI IS ON HOLD PER DR PALMA. CIWAS STABLE BUT DIFFICULT TO DETERMINE HOW MUCH IS ETOH VS PANCREATITIS SX. REPORT GIVEN TO PNEUMATIC JACK OPERATOR RN.
[2023-06-05 19:52] VITALS: BP 154/97
--- NOTE | 2023-06-06 04:04 | NUR ---
SHIFT SUMMARY. SHIFT HAS BEEN UNREMARKABLE OUTSIDE OF PAIN MANAGEMENT. PT IS NOT TOLERATING DIET WELL AND HAS ONLY HAD VERY VERY MINIMAL PO INTAKE. PAIN HAS BEEN MOSTLY WELL MANAGED ON CURRENT MEDICATION REGIMEN. STILL TAKING DILAUDID Q3 HOURS AND PAIN STARTS TO SPIKE NOT LONG BEFORE EACH DOSE IS DUE. REFUSED 2100 PEPCID. SOME PT CONCERN FOR CONSTIPATION. EDUCATED ON IMPORTANCE OF PO FLUID INTAKE BUT UNDERSTAND BALANCE BETWEEN AVOIDING CONSTIPATION AND AVOIDING PO INTAKE INTOLERANCE AND CONSEQUENCE N/V. REMAINS INDEPENDENT WITHIN ROOM. AOX4, PLEASANT, COOPERATIVE WITH CARE. NO MANIFESTATIONS OF WITHDRAWAL. CIWA SCORE IS MILDLY ELEVATED DUE PRIMARILY TO PARAMETER FOR N/V BEING PRESENT, WHICH OBVIOUSLY IS. VERY MILD HEADACHE REPORTED EARLY THIS MORNING WHICH HAS SUBSIDED SINCE DILAUDID ADMINISTRATION. CALLS APPROPRIATELY. BED LOCKED IN LOWEST POSITION. CALL LIGHT LEFT WITHIN REACH.
[2023-06-06 05:49] VITALS: BP 148/100
[2023-06-06 05:54] LABS: BASOPHILS ABSOLUTE AUTO 0.02 K/mm3 (0.00-0.23); BASOPHILS PERCENT AUTO 0 % (0-2); EOSINOPHILS ABSOLUTE AUTO 0.34 K/mm3 (0.00-0.68); EOSINOPHILS PERCENT AUTO 3 % (0-6); Hematocrit 38.1 % (33.0-51.0); Hemoglobin 12.6 g/dL (11.5-16.0); IMMATURE GRAN ABSOLUTE AUTO 0.04 K/mm3 (0.00-0.10); IMMATURE GRAN PERCENT AUTO 0 % (0-1); LYMPHOCYTES ABSOLUTE AUTO 1.24 K/mm3 (0.84-5.20); LYMPHOCYTES PERCENT AUTO 12 % (21-46); MONOCYTES ABSOLUTE AUTO 0.73 K/mm3 (0.16-1.47); MONOCYTES PERCENT AUTO 7 % (4-13); Mean Corpuscular HGB 30.9 pg (26.0-34.0); Mean Corpuscular HGB Conc 33.1 g/dL (31.5-36.5); Mean Corpuscular Volume 93 fL (80-100); Mean Platelet Volume 8.8 fL (9.1-12.4); NEUTROPHILS ABSOLUTE AUTO 7.65 K/mm3 (1.96-9.15); NEUTROPHILS PERCENT AUTO 76 % (41-73); Platelet Count 153 K/mm3 (150-400); RDW Coefficient Variation 12.8 % (11.7-14.2); RDW Standard Deviation 43.8 fL (35.1-46.3); Red Blood Cell Count 4.08 M/mm3 (3.80-5.20); White Blood Cell Count 10.02 K/mm3 (4.00-11.30)
[2023-06-06 06:28] LABS: Bun/Creatinine Ratio 34.3 (12.0-20.0); Calcium, Blood 8.2 mg/dL (8.5-10.1); Creatinine, Blood 0.5 mg/dL (0.40-1.00); Potassium, Blood 3.8 mmol/L (3.5-5.5)
--- NOTE | 2023-06-06 08:14 | NUR ---
CALLED DR CARVAJAL- PT HAS AN ORDER FOR IV LEVOTHYROXINE 50MCG. PER MD NOTE PT WAS TO CONTINUE 137MCG IV DAILY. CALLED PHARMACY TO VERIFY DOSE CONVERSION IV SHOULD BE REDUCED BY 30% FROM PO DOSE. CALLED DR TO VERIFY THE CORRECT DOSING PRIOR TO ADMINISTRATION. RECIEVED ORDER TO DC IV AND PLACE THE PT ON PO AT HER HOME DOSE.
[2023-06-06 08:18] VITALS: BP 135/90
--- NOTE | 2023-06-06 10:47 | NUR ---
CALLED DR CARVAJAL- PT HAS AN ORDER FOR MRI ABD, HOWEVER REPORT WAS GIVEN THAT THE ORDER WAS SUPPOSED TO BE CANCELLED. PER DR CARVAJAL, OK TO PROCEED WITH THE IMAGING.
--- NOTE | 2023-06-06 13:00 | NUR ---
SPOKE TO DR CARVAJAL- PT WANTING TO GO HOME TODAY BUT IS STILL ON IV DILAUDID, REQUESTED PO MEDS TO BRIDGE TO PO TREATMENT. RED RECIEVED TO DC DDLIAUDID AND GIVE TYLENOL. PT HAS BEEN RECIEVING 1MG IV DILAUDID Q3 HOURS. MD COWART. SPOKE TO PT ABOUT THE PLAN FOR PAIN MANAGEMENT AND SHE ASKED TO SPEAK TO DR CARVAJAL. DR MOYA CAME AND SPOKE TO HER. ORDER RECIEVED FOR PO OXY 5MG. THAT WAS GIVEN. ON REEVALUATION THE PT STATED THE PAIN IS GETTING WORSE NOT BETTER. THE PT ASKED TO SPEAK TO A DIFFERENT DOCTOR. CALLED DR BYRD AND SPOKE TO HIM, HE WILL DISCUSS THE CASE WITH DR CARVAJAL AT THE PT REQUEST.
[2023-06-06 15:47] VITALS: BP 143/95
--- NOTE | 2023-06-06 19:13 | NUR ---
SHIFT SUMMARY- PT ALERT ORIENTED AND INDEPENDENT IN THE ROOM. SHE HAS HAD PAIN T/O THE SHIFT THAT APPEARS TO BE MORE MANAGED NOW. PT RECIEVED PO OXY THIS EVENING AND IT SEEMS TO HAVE REDUCED THE PAIN A LITTLE (AT THE 10 MG DOSE) DILAUDID WAS CHANGED TO Q4. PT IS AWARE THE IV PAIN MEDS ARE FOR BREAKTHROUGH PAIN AND SHE IS TRYING ALL OTHER OPTIONS BEFORE TAKING THOSE, SHE HAS A HEATING PAD AND RECIEVED TORADOL. SHE SAYS HER PIN SEEMS TO BE UNDER CONTROL. HOWEVER AFTER BEDSID REPORT WAS COMPLETED SHE TOLD THIS RN THAT THE BED WAS SHAKING, SHE WAS VERY INSISTENT. TOOK THE PT HAND, HER PALMS WERE SWEATY AND THERE WAS A VERY FAINT TREMMOR NOTED. PASSED ON TO NIGHT RAMBO AN. PT STATES HER LAST DRINK WAS 5 DAYS AGO AND IT WAS 3 BEERS "SO THIS CANT BE WITHDRAWL SYMPTOMS." PT SPOUSE IS AT THE BEDSIDE AT THIS TIME. PT OTHERWISE SEEMS TO BE IN GOOD SPIRITS.
[2023-06-06 20:21] VITALS: BP 151/95
[2023-06-07 04:09] VITALS: BP 150/91
--- NOTE | 2023-06-07 04:09 | NUR ---
SHIFT SUMMARY. SHIFT HAS BEEN MOSTLY UNREMARKABLE OUTSIDE OF PAIN MANAGEMENT. PT PAIN HAS BEEN MUCH BETTER THIS SHIFT THAN PREVIOUS TWO NIGHTS. AVAILABLE ARE PRN TORADOL, OXYCODONE, AND DILAUDID. PT IS TRYING TO STOP USE OF DILAUDID IN HOPES OF BEING ABLE TO GO HOME AND PAIN HAS BEEN ALMOST ENTIRELY MANAGED VIA TORADOL AND OXYCODONE. AOX4, PLEASANT, COOPERATIVE WITH CARE. NO MANIFESTATIONS OF WITHDRAWAL. BETTER ABLE TO TOLERATE PO DIET THAN PREVIOUS TWO NIGHTS. ABLE TO EAT SMALL AMOUNTS AND HAS NOT REPORTED ANY N/V. ENCOURAGED PO FLUID INTAKE SHE IS CONCERNED OF POSSIBLE CONSTIPATION AND ADMINISTERED STOOL SOFTENERS AND MIRALAX. PT HAS BEEN SLEEPING PEACEFULLY IN BED THROUGH MOST OF MORNING. CALLS APPROPRIATELY. BED LOCKED IN LOWEST POSITION. CALL LIGHT LEFT WITHIN REACH.
[2023-06-07 05:37] LABS: BASOPHILS ABSOLUTE AUTO 0.03 K/mm3 (0.00-0.23); BASOPHILS PERCENT AUTO 0 % (0-2); EOSINOPHILS ABSOLUTE AUTO 0.29 K/mm3 (0.00-0.68); EOSINOPHILS PERCENT AUTO 3 % (0-6); Hematocrit 36.8 % (33.0-51.0); Hemoglobin 12.5 g/dL (11.5-16.0); IMMATURE GRAN ABSOLUTE AUTO 0.03 K/mm3 (0.00-0.10); IMMATURE GRAN PERCENT AUTO 0 % (0-1); LYMPHOCYTES ABSOLUTE AUTO 1.33 K/mm3 (0.84-5.20); LYMPHOCYTES PERCENT AUTO 16 % (21-46); MONOCYTES ABSOLUTE AUTO 0.56 K/mm3 (0.16-1.47); MONOCYTES PERCENT AUTO 7 % (4-13); Mean Corpuscular HGB 30.8 pg (26.0-34.0); Mean Corpuscular Volume 91 fL (80-100); Mean Platelet Volume 8.6 fL (9.1-12.4); NEUTROPHILS ABSOLUTE AUTO 6.22 K/mm3 (1.96-9.15); NEUTROPHILS PERCENT AUTO 74 % (41-73); Platelet Count 166 K/mm3 (150-400); RDW Coefficient Variation 12.6 % (11.7-14.2); RDW Standard Deviation 41.3 fL (35.1-46.3); Red Blood Cell Count 4.06 M/mm3 (3.80-5.20); White Blood Cell Count 8.46 K/mm3 (4.00-11.30)
[2023-06-07 06:00] LABS: Albumin, Blood 2.8 g/dL (3.4-5.0); Albumin/Globulin Ratio 0.8 (0.8-1.8); Bilirubin, Direct 0.4 mg/dL (0.0-0.3); Bilirubin, Indirect 0.8 mg/dL (0.1-0.7); Bilirubin, Total 1.2 mg/dL (0.1-1.0); Calcium, Blood 8.2 mg/dL (8.5-10.1); Creatinine, Blood 0.53 mg/dL (0.40-1.00); Globulin, Blood 3.6 g/dL (2.2-4.0); Total Protein, Blood 6.4 g/dL (6.4-8.2)
[2023-06-07 08:30] VITALS: BP 159/96
[2023-06-07 15:13] VITALS: BP 148/94
--- NOTE | 2023-06-07 16:34 | NUR ---
PT LEFT AMA- DR CARVAJAL CAME TO SEE THE PT, SHE HAS NOT USED IV NARCOTICS SINCE 2200 LAST NIGHT, PAIN HAS BEEN WELL MANAGED ON OXY AND A DOSE OF IV TORADOL THIS MORENING AT 0930. HOWEVER BECAUSE THE PT STILL REQUIRES IV MEDICATION WANTS TO SEE HER PAIN WELL MANAGED ON PO MEDS ONLY, PRIOR TO DISCHARGE. PLAN WAS FOR DC HOME TOMORROW IF THE PT PAIN IS MANAGED WELL. PT WAS UNWILLING TO STAY ANOTHER NIGHT. MD ASKED THAT THE PT BE AWARE OF WHAT THE RAMIFICATIONS ARE IF SHE LEAVES AGAINST MEDICAL ADVICE. PT CONFIRMED SHE IS AWARE. AND SIGNED THE AMA FORMS. DR CARVAJAL DID PROVIDE THE PT WITH A WRITTEN SCRIPT FOR PAIN MEDICATION, IV DC'D AND PT LEFT WITH HER . NO S&S OF DISTRESS NOTED AT THE TIME OF HER LEAVING AMA.
== END 2023-06-07 16:08 | disposition left against medical advice (07) | DRG 440 ==
LOC: ER 17:09 → MEDS 17:10
PROVIDERS: Internal Medicine; Student in an Organized Health Care Education/Training Program; ADMIT Internal Medicine
DX: K85.20 Alcohol induced acute pancreatitis without necrosis or infection (principal); K70.9 Alcoholic liver disease, unspecified; I10 Essential (primary) hypertension; E03.9 Hypothyroidism, unspecified; R74.8 Abnormal levels of other serum enzymes; K70.0 Alcoholic fatty liver; K59.00 Constipation, unspecified; E78.00 Pure hypercholesterolemia, unspecified; F41.9 Anxiety disorder, unspecified; F17.210 Nicotine dependence, cigarettes, uncomplicated; E80.6 Other disorders of bilirubin metabolism; R16.0 Hepatomegaly, not elsewhere classified; F10.20 Alcohol dependence, uncomplicated; Z53.29 Procedure and treatment not carried out because of patient's decision for other reasons; Z87.19 Personal history of other diseases of the digestive system; Z88.0 Allergy status to penicillin; Z88.1 Allergy status to other antibiotic agents; Z71.41 Alcohol abuse counseling and surveillance of alcoholic; Z91.013 Allergy to seafood; Z88.5 Allergy status to narcotic agent; Z79.899 Other long term (current) drug therapy; Z98.890 Other specified postprocedural states
CPT/HCPCS: 36415; 74176; 76705; 80048; 80053; 80076; 81001; 81025; 83690; 83735; 85025; 87086; 93005; 93010; 96361; 96374; 96375; 96376; 99285-25; A9270; G0378; J1170; J1790; J1885; J2060; J2405; J3010; J3360; J7030; J7120

== ENCOUNTER → 2023-06-10 | Outpatient (CLI) | payer OTHER ==
[2023-06-10 12:51] LABS: BASOPHILS ABSOLUTE AUTO 0.04 K/mm3 (0.00-0.23); BASOPHILS PERCENT AUTO 1 % (0-2); EOSINOPHILS PERCENT AUTO 3 % (0-6); Hematocrit 42.6 % (33.0-51.0); Hemoglobin 14.5 g/dL (11.5-16.0); IMMATURE GRAN ABSOLUTE AUTO 0.04 K/mm3 (0.00-0.10); IMMATURE GRAN PERCENT AUTO 1 % (0-1); LYMPHOCYTES ABSOLUTE AUTO 1.49 K/mm3 (0.84-5.20); LYMPHOCYTES PERCENT AUTO 19 % (21-46); MONOCYTES ABSOLUTE AUTO 0.65 K/mm3 (0.16-1.47); MONOCYTES PERCENT AUTO 8 % (4-13); Mean Corpuscular HGB 31.6 pg (26.0-34.0); Mean Corpuscular Volume 93 fL (80-100); Mean Platelet Volume 8.1 fL (9.1-12.4); NEUTROPHILS ABSOLUTE AUTO 5.62 K/mm3 (1.96-9.15); NEUTROPHILS PERCENT AUTO 70 % (41-73); Platelet Count 296 K/mm3 (150-400); RDW Coefficient Variation 13.2 % (11.7-14.2); RDW Standard Deviation 44.7 fL (35.1-46.3); Red Blood Cell Count 4.59 M/mm3 (3.80-5.20); White Blood Cell Count 8.04 K/mm3 (4.00-11.30)
[2023-06-10 13:02] LABS: Albumin, Blood 3.7 g/dL (3.4-5.0); Albumin/Globulin Ratio 0.9 (0.8-1.8); Bun/Creatinine Ratio 22.5 (12.0-20.0); Calcium, Blood 9.4 mg/dL (8.5-10.1); Creatinine, Blood 0.71 mg/dL (0.40-1.00); Globulin, Blood 4.3 g/dL (2.2-4.0); Potassium, Blood 3.5 mmol/L (3.5-5.5)
== END | disposition home or self-care (01) ==
LOC: LAB SHORT 12:47 → LAB 12:47
PROVIDERS: Physician Assistant
DX: K85.90 Acute pancreatitis without necrosis or infection, unspecified (principal)
CPT/HCPCS: 80053; 83690; 85025

== ENCOUNTER → 2023-06-28 | Outpatient (CLI) | payer OTHER | LOC: PLD 11:56 → LAB SHORT 11:56 | DX: C49.6 Malignant neoplasm of connective and soft tissue of trunk, unspecified (principal) | CPT/HCPCS: 88305; 88341; 88342 ==

== ENCOUNTER → 2023-08-06 | Outpatient (CLI) | payer OTHER ==
[2023-08-06 14:31] LABS: BASOPHILS ABSOLUTE AUTO 0.05 K/mm3 (0.00-0.23); BASOPHILS PERCENT AUTO 1 % (0-2); EOSINOPHILS PERCENT AUTO 3 % (0-6); Hematocrit 45.1 % (33.0-51.0); IMMATURE GRAN ABSOLUTE AUTO 0.03 K/mm3 (0.00-0.10); IMMATURE GRAN PERCENT AUTO 0 % (0-1); LYMPHOCYTES ABSOLUTE AUTO 1.07 K/mm3 (0.84-5.20); LYMPHOCYTES PERCENT AUTO 11 % (21-46); MONOCYTES ABSOLUTE AUTO 0.47 K/mm3 (0.16-1.47); MONOCYTES PERCENT AUTO 5 % (4-13); Mean Corpuscular HGB 31.6 pg (26.0-34.0); Mean Corpuscular HGB Conc 33.3 g/dL (31.5-36.5); Mean Corpuscular Volume 95 fL (80-100); Mean Platelet Volume 8.9 fL (9.1-12.4); NEUTROPHILS ABSOLUTE AUTO 7.64 K/mm3 (1.96-9.15); NEUTROPHILS PERCENT AUTO 80 % (41-73); Platelet Count 210 K/mm3 (150-400); RDW Coefficient Variation 12.1 % (11.7-14.2); RDW Standard Deviation 42.5 fL (35.1-46.3); Red Blood Cell Count 4.75 M/mm3 (3.80-5.20); White Blood Cell Count 9.56 K/mm3 (4.00-11.30)
[2023-08-06 15:23] LABS: Albumin/Globulin Ratio 1.1 (0.8-1.8); Bilirubin, Total 2.2 mg/dL (0.1-1.0); Bun/Creatinine Ratio 31.4 (12.0-20.0); Calcium, Blood 9.2 mg/dL (8.5-10.1); Creatinine, Blood 0.54 mg/dL (0.40-1.00); Globulin, Blood 3.8 g/dL (2.2-4.0); Potassium, Blood 4.2 mmol/L (3.5-5.5); Total Protein, Blood 7.8 g/dL (6.4-8.2)
== END | disposition home or self-care (01) ==
LOC: LAB 13:03 → LAB SHORT 13:03
PROVIDERS: Family Medicine
DX: K85.90 Acute pancreatitis without necrosis or infection, unspecified (principal); R10.9 Unspecified abdominal pain
CPT/HCPCS: 80053; 83690; 85025

== ENCOUNTER → 2023-09-03 | Outpatient (CLI) | payer OTHER | LOC: LAB SHORT 07:33 → LAB 07:33 | DX: D23.5 Other benign neoplasm of skin of trunk (principal); D22.5 Melanocytic nevi of trunk | CPT/HCPCS: 88305 ==

== ENCOUNTER 2023-11-25 21:30 | Inpatient (IN) | payer OTHER ==
[~2023-11-25] VITALS: Ht 170.2 cm; Wt 76.2 kg
[2023-11-25 21:55] LABS: BASOPHILS ABSOLUTE AUTO 0.03 K/mm3 (0.00-0.23); BASOPHILS PERCENT AUTO 0 % (0-2); EOSINOPHILS ABSOLUTE AUTO 0.17 K/mm3 (0.00-0.68); EOSINOPHILS PERCENT AUTO 2 % (0-6); Hematocrit 42.7 % (33.0-51.0); Hemoglobin 14.5 g/dL (11.5-16.0); IMMATURE GRAN ABSOLUTE AUTO 0.03 K/mm3 (0.00-0.10); IMMATURE GRAN PERCENT AUTO 0 % (0-1); LYMPHOCYTES ABSOLUTE AUTO 1.19 K/mm3 (0.84-5.20); LYMPHOCYTES PERCENT AUTO 14 % (21-46); MONOCYTES ABSOLUTE AUTO 0.58 K/mm3 (0.16-1.47); MONOCYTES PERCENT AUTO 7 % (4-13); Mean Corpuscular HGB 32.5 pg (26.0-34.0); Mean Corpuscular Volume 96 fL (80-100); Mean Platelet Volume 8.8 fL (9.1-12.4); NEUTROPHILS ABSOLUTE AUTO 6.42 K/mm3 (1.96-9.15); NEUTROPHILS PERCENT AUTO 76 % (41-73); Platelet Count 187 K/mm3 (150-400); RDW Coefficient Variation 12.8 % (11.7-14.2); RDW Standard Deviation 45.7 fL (35.1-46.3); Red Blood Cell Count 4.46 M/mm3 (3.80-5.20); White Blood Cell Count 8.42 K/mm3 (4.00-11.30)
[2023-11-25 22:19] LABS: Albumin, Blood 3.6 g/dL (3.4-5.0); Albumin/Globulin Ratio 0.9 (0.8-1.8); Bun/Creatinine Ratio 16.4 (12.0-20.0); Calcium, Blood 8.6 mg/dL (8.5-10.1); Creatinine, Blood 0.55 mg/dL (0.40-1.00); Globulin, Blood 3.9 g/dL (2.2-4.0); Potassium, Blood 4.3 mmol/L (3.5-5.5); Total Protein, Blood 7.5 g/dL (6.4-8.2)
[2023-11-26 04:35] LABS: BASOPHILS ABSOLUTE AUTO 0.02 K/mm3 (0.00-0.23); BASOPHILS PERCENT AUTO 0 % (0-2); EOSINOPHILS PERCENT AUTO 2 % (0-6); Hematocrit 36.1 % (33.0-51.0); Hemoglobin 12.1 g/dL (11.5-16.0); IMMATURE GRAN ABSOLUTE AUTO 0.04 K/mm3 (0.00-0.10); IMMATURE GRAN PERCENT AUTO 1 % (0-1); LYMPHOCYTES ABSOLUTE AUTO 1.07 K/mm3 (0.84-5.20); LYMPHOCYTES PERCENT AUTO 13 % (21-46); MONOCYTES ABSOLUTE AUTO 0.53 K/mm3 (0.16-1.47); MONOCYTES PERCENT AUTO 6 % (4-13); Mean Corpuscular HGB 32.1 pg (26.0-34.0); Mean Corpuscular HGB Conc 33.5 g/dL (31.5-36.5); Mean Corpuscular Volume 96 fL (80-100); Mean Platelet Volume 8.9 fL (9.1-12.4); NEUTROPHILS ABSOLUTE AUTO 6.53 K/mm3 (1.96-9.15); NEUTROPHILS PERCENT AUTO 78 % (41-73); Platelet Count 164 K/mm3 (150-400); RDW Coefficient Variation 12.7 % (11.7-14.2); RDW Standard Deviation 45.4 fL (35.1-46.3); Red Blood Cell Count 3.77 M/mm3 (3.80-5.20); White Blood Cell Count 8.39 K/mm3 (4.00-11.30)
[2023-11-26 05:10] LABS: Albumin, Blood 2.9 g/dL (3.4-5.0); Albumin/Globulin Ratio 0.9 (0.8-1.8); Bilirubin, Total 1.7 mg/dL (0.1-1.0); Bun/Creatinine Ratio 20.8 (12.0-20.0); Calcium, Blood 7.6 mg/dL (8.5-10.1); Creatinine, Blood 0.53 mg/dL (0.40-1.00); Globulin, Blood 3.3 g/dL (2.2-4.0); Potassium, Blood 4.1 mmol/L (3.5-5.5); Total Protein, Blood 6.2 g/dL (6.4-8.2)
[2023-11-26 10:17] VITALS: BP 158/105
[2023-11-26 15:00] VITALS: BP 152/95
--- NOTE | 2023-11-26 19:06 | NUR ---
DR. JOSE NOTIFIED THAT PT'S PAIN WAS INCREASING APPROXIMATELY 1 HOUR PRIOR TO THE NEXT AVALIABLE DOSE. DR. JOSE STATED SHE WOULD PLACE ORDERS FOR BRASS RECLAIMER. AWAITING ORDERS AT THIS TIME. IV DILAUDID GIVEN TO MANAGE PAIN UNTIL BRASS RECLAIMER ORDERS ARE AVALIABLE.
--- NOTE | 2023-11-26 19:08 | NUR ---
CHEST DISCOMFORT PT REPORTED CHEST DISCOMFORT THAT PT STATED STARTED AT APPROXIMATELY 1730. PT REPORTED CHEST DISCOMFORT TO RN AT APPROXIMATELY 1820 AND STATED IT RESOLVED AFTER SHE TOOK A WARM SHOWER. PT REPORTS IT FEELS LIKE MUSCLE PAIN. PT DENIED SHORTNESS OF BREATH. PT DENIED CHEST PAIN AND SHORTNESS OF BREATH DURING BEDSIDE REPORT.
--- NOTE | 2023-11-26 19:15 | NUR ---
SHIFT SUMMARY PAIN HAS BEEN DIFFICULTY TO MANAGE THIS SHIFT; DILAUDID AND TORADOL GIVEN FOR PAIN. PT REPORTED GAPS IN PAIN MANAGEMENT, DR. JOSE NOTIFIED AND ORDERED A GUITAR MAKER. NOC RN NOTIFIED OF ORDER, WAITING FOR PHARMACY TO PROVIDED GUITAR MAKER VIAL. PT HAS ALSO USED KPAD AND SHOWERS FOR PAIN MANAGMENT. PT IS INDEPENDENT IN THE ROOM. SHE DECLINED IV FLUIDS FOR MUCH OF THE SHIFT BUT AGREED TO BE CONNECTED THIS EVENING, DR. JOSE AWARE. BEDSIDE REPORT PROVIDED. PT SITTING UP AND PARTICIPATED IN BEDSIDE REPORT. CALL LIGHT WITHIN REACH. PT DENIED CHEST PAIN AND SHORTNESS OF BREATH AT SHIFT CHANGE.
[2023-11-26 19:38] VITALS: BP 150/101
[2023-11-26 22:58] VITALS: BP 165/105
[2023-11-26 23:52] VITALS: BP 166/102
[2023-11-27 04:25] VITALS: BP 155/96
[2023-11-27 07:16] VITALS: BP 167/102
--- NOTE | 2023-11-27 07:26 | NUR ---
SUMMARY A&O X4, ON RA, NPO, INDEPENDENT IN ROOM, EXTREME ANXIETY NOTED, CIWA SCORE OF 8, PT DENIES RECENT ALCOHOL INTAKE, ZOFRAN GIVEN X1, PT REFUSED ADDITIONAL DOSES, DILAUDID MANAGER COST INITIATED, PT APPEARS TO BE MRE COMFORTABLE, STATES SHE DEELS "MUCH BETTER". URINE IS LIGHT ORANGE, MENSUS STARTED, REPORT GIVEN TO ANA RICKS, RESTING IN BED, CALL LIGHT IN REACH
[2023-11-27 16:13] VITALS: BP 153/107
--- NOTE | 2023-11-27 17:40 | NUR ---
SHIFT SUMMARY PT REPORTS FEELING THE BEST SHE HAS SINCE ADMISSION THIS AFTERNOON. TRIED SOME SIPS OF BROTH THIS AFTERNOON & REPORTS FEELING SOME ABD PRESSURE, BUT NO N/V. PLEASANT & UPBEAT.
[2023-11-27 19:20] VITALS: BP 152/97
--- NOTE | 2023-11-27 22:04 | NUR ---
PT REPORTING EPIGASTRIC/CHEST PAIN IN THE CENTER OF CHEST. SHE DESCRIBES IT HAS A ACHE. STATES 510. SHE STATES SHE HAS HAD SIMILAR PAIN IN HER CHEST BEFORE ADMISSION THAT RESOLVED. PT DENIES SOB, OR NAUSEA/VOMITTING AT THE TIME OF ASSESSMENT. MEDICATED WITH TORADOL AT 2041, AND PT IS REPORTING THAT CHEST PAIN HAS RESOLVED. SAW ZEPEDA NP NOTIFIED. NO NEW ORDERS AT THIS TIME.
[2023-11-28 04:46] VITALS: BP 154/96
[2023-11-28 05:03] LABS: BASOPHILS ABSOLUTE AUTO 0.02 K/mm3 (0.00-0.23); BASOPHILS PERCENT AUTO 0 % (0-2); EOSINOPHILS ABSOLUTE AUTO 0.36 K/mm3 (0.00-0.68); EOSINOPHILS PERCENT AUTO 5 % (0-6); Hematocrit 35.9 % (33.0-51.0); Hemoglobin 12.4 g/dL (11.5-16.0); IMMATURE GRAN ABSOLUTE AUTO 0.05 K/mm3 (0.00-0.10); IMMATURE GRAN PERCENT AUTO 1 % (0-1); LYMPHOCYTES ABSOLUTE AUTO 1.53 K/mm3 (0.84-5.20); LYMPHOCYTES PERCENT AUTO 20 % (21-46); MONOCYTES ABSOLUTE AUTO 0.62 K/mm3 (0.16-1.47); MONOCYTES PERCENT AUTO 8 % (4-13); Mean Corpuscular HGB 32.2 pg (26.0-34.0); Mean Corpuscular HGB Conc 34.5 g/dL (31.5-36.5); Mean Corpuscular Volume 93 fL (80-100); Mean Platelet Volume 8.7 fL (9.1-12.4); NEUTROPHILS ABSOLUTE AUTO 4.95 K/mm3 (1.96-9.15); NEUTROPHILS PERCENT AUTO 66 % (41-73); Platelet Count 191 K/mm3 (150-400); RDW Coefficient Variation 12.2 % (11.7-14.2); RDW Standard Deviation 41.6 fL (35.1-46.3); Red Blood Cell Count 3.85 M/mm3 (3.80-5.20); White Blood Cell Count 7.53 K/mm3 (4.00-11.30)
--- NOTE | 2023-11-28 05:25 | NUR ---
SHIFT SUMMARY PT REPORTS THAT SHE HAS BEEN AWAKE MOST OF THE NIGHT AND HAS NOT SLEPT. PT HAS BEEN ANXIOUS. CIWA SCORES LOW. PT REPORTS THAT OVERALL SHE IS FEELING BETTER. ONE EPISODE OF N/V, CLEAR EMESIS. SHE DECLINED ANTIEMETICS. PT REPORTED EPIGASTRIC/CHEST PAIN X1 THIS SHIFT THAT WAS RELIEVED WITH IV TORADOL, SEE PREVIOUS NURSE'S NOTES. ABD SOFT, BUT STILL SLIGHLTY DISTENDED. BOWEL TONES HYPERACTIVE, SHE HAS BEEN TAKING IN SMALL SIPS OF BROTH, AND TOLERATING WATER. DILAUDID BRANCH LENDING OFFICER IN PLACE. VITALS TRENDING AROUND HER BASELINE SINCE ADMISSION. SHE REFUSED TO TAKE THE NEW BLOOD PRESSURE MEDCATION THAT WAS ORDERED, STATING SHE DID NOT FEEL COMFORTABLE STARTING A NEW MEDICATION RIGHT NOW. NO OTHER CHANGES TO REPORT OVERNIGHT. PT HOPING FOR DISCHARGE TODAY. BED IN LOWEST POSITION, CALL LIGHT WITHIN REACH.
[2023-11-28 05:40] LABS: Albumin/Globulin Ratio 0.8 (0.8-1.8); Bilirubin, Total 1.5 mg/dL (0.1-1.0); Bun/Creatinine Ratio 21.6 (12.0-20.0); Calcium, Blood 8.7 mg/dL (8.5-10.1); Creatinine, Blood 0.46 mg/dL (0.40-1.00); Globulin, Blood 3.9 g/dL (2.2-4.0); Potassium, Blood 3.7 mmol/L (3.5-5.5); Total Protein, Blood 6.9 g/dL (6.4-8.2)
[2023-11-28 07:03] VITALS: BP 142/97
--- NOTE | 2023-11-28 09:33 | NUR ---
TOLERATED LOW FAT DIET w/ NO N/V OR ABD PAIN. PO PAIN MEDS GIVEN THEN 30 MINS LATER LAPELER TURNED OFF & IV SL. HOPEFUL FOR DC TODAY.
[2023-11-28] MEDS ORDERED: OXYC5 PO (11:04)
--- NOTE | 2023-11-28 12:13 | NUR ---
DISCHARGE PT EATING, DRINKING, PAIN WELL MANAGED w/ PO MEDS. SCRIPT GIVEN & DECLINED WC OUT.
== END 2023-11-28 12:08 | disposition home or self-care (01) | DRG 440 ==
LOC: ER 21:30 → ERHOLD 11-26 00:29 → SURS 11-26 10:17
PROVIDERS: Physician Assistant; Student in an Organized Health Care Education/Training Program; ADMIT Internal Medicine
DX: K85.20 Alcohol induced acute pancreatitis without necrosis or infection (principal); K86.0 Alcohol-induced chronic pancreatitis; I10 Essential (primary) hypertension; E78.00 Pure hypercholesterolemia, unspecified; E03.9 Hypothyroidism, unspecified; F41.9 Anxiety disorder, unspecified; F17.210 Nicotine dependence, cigarettes, uncomplicated; K70.0 Alcoholic fatty liver; F10.90 Alcohol use, unspecified, uncomplicated
CPT/HCPCS: 36415; 76705; 80053; 83690; 84703; 85025; 96361; 96374; 96375; 96376; 99285-25; A9270; G0378; J1170; J1885; J2270; J2405; J7030; J7120

== ENCOUNTER → 2024-03-14 | Outpatient (CLI) | payer OTHER ==
[2024-03-14 19:16] LABS: BASOPHILS ABSOLUTE AUTO 0.03 K/mm3 (0.00-0.23); BASOPHILS PERCENT AUTO 0 % (0-2); EOSINOPHILS ABSOLUTE AUTO 0.14 K/mm3 (0.00-0.68); EOSINOPHILS PERCENT AUTO 2 % (0-6); Hematocrit 36.3 % (33.0-51.0); Hemoglobin 12.2 g/dL (11.5-16.0); IMMATURE GRAN ABSOLUTE AUTO 0.06 K/mm3 (0.00-0.10); IMMATURE GRAN PERCENT AUTO 1 % (0-1); LYMPHOCYTES ABSOLUTE AUTO 1.87 K/mm3 (0.84-5.20); LYMPHOCYTES PERCENT AUTO 24 % (21-46); MONOCYTES ABSOLUTE AUTO 0.63 K/mm3 (0.16-1.47); MONOCYTES PERCENT AUTO 8 % (4-13); Mean Corpuscular HGB 33.1 pg (26.0-34.0); Mean Corpuscular HGB Conc 33.6 g/dL (31.5-36.5); Mean Corpuscular Volume 98 fL (80-100); Mean Platelet Volume 9.1 fL (9.1-12.4); NEUTROPHILS ABSOLUTE AUTO 5.06 K/mm3 (1.96-9.15); NEUTROPHILS PERCENT AUTO 65 % (41-73); Platelet Count 331 K/mm3 (150-400); RDW Coefficient Variation 11.3 % (11.7-14.2); RDW Standard Deviation 40.6 fL (35.1-46.3); Red Blood Cell Count 3.69 M/mm3 (3.80-5.20); White Blood Cell Count 7.79 K/mm3 (4.00-11.30)
[2024-03-14 19:32] LABS: Albumin, Blood 3.4 g/dL (3.4-5.0); Albumin/Globulin Ratio 0.9 (0.8-1.8); Bilirubin, Total 1.3 mg/dL (0.1-1.0); Bun/Creatinine Ratio 14.3 (12.0-20.0); Calcium, Blood 8.9 mg/dL (8.5-10.1); Creatinine, Blood 0.63 mg/dL (0.40-1.00); Globulin, Blood 3.8 g/dL (2.2-4.0); Potassium, Blood 3.3 mmol/L (3.5-5.5); Total Protein, Blood 7.2 g/dL (6.4-8.2)
== END | disposition home or self-care (01) ==
LOC: LAB SHORT 17:21 → LAB 17:21
PROVIDERS: Nurse Practitioner Family
DX: K86.0 Alcohol-induced chronic pancreatitis (principal)
CPT/HCPCS: 80053; 83690; 85025

== ENCOUNTER → 2024-06-06 | Outpatient (CLI) | payer OTHER ==
[2024-06-06 19:04] LABS: BASOPHILS ABSOLUTE AUTO 0.04 K/mm3 (0.00-0.23); BASOPHILS PERCENT AUTO 0 % (0-2); EOSINOPHILS ABSOLUTE AUTO 0.39 K/mm3 (0.00-0.68); EOSINOPHILS PERCENT AUTO 4 % (0-6); Hematocrit 42.9 % (33.0-51.0); Hemoglobin 14.7 g/dL (11.5-16.0); IMMATURE GRAN ABSOLUTE AUTO 0.04 K/mm3 (0.00-0.10); IMMATURE GRAN PERCENT AUTO 0 % (0-1); LYMPHOCYTES ABSOLUTE AUTO 1.87 K/mm3 (0.84-5.20); LYMPHOCYTES PERCENT AUTO 17 % (21-46); MONOCYTES ABSOLUTE AUTO 0.62 K/mm3 (0.16-1.47); MONOCYTES PERCENT AUTO 6 % (4-13); Mean Corpuscular HGB Conc 34.3 g/dL (31.5-36.5); Mean Corpuscular Volume 93 fL (80-100); Mean Platelet Volume 9.3 fL (9.1-12.4); NEUTROPHILS ABSOLUTE AUTO 7.89 K/mm3 (1.96-9.15); NEUTROPHILS PERCENT AUTO 73 % (41-73); Platelet Count 255 K/mm3 (150-400); RDW Coefficient Variation 11.7 % (11.7-14.2); White Blood Cell Count 10.85 K/mm3 (4.00-11.30)
[2024-06-06 19:14] LABS: Albumin, Blood 3.7 g/dL (3.4-5.0); Albumin/Globulin Ratio 0.9 (0.8-1.8); Bilirubin, Total 2.2 mg/dL (0.1-1.0); Bun/Creatinine Ratio 21.9 (12.0-20.0); Calcium, Blood 8.7 mg/dL (8.5-10.1); Creatinine, Blood 0.59 mg/dL (0.40-1.00); Potassium, Blood 3.9 mmol/L (3.5-5.5); Total Protein, Blood 7.7 g/dL (6.4-8.2)
== END | disposition home or self-care (01) ==
LOC: LAB 16:12 → LAB SHORT 16:12
PROVIDERS: Nurse Practitioner Family
DX: K86.0 Alcohol-induced chronic pancreatitis (principal)
CPT/HCPCS: 80053; 83690; 85025; 87086